=== PATIENT | male | born 1995 | race Caucasian/White ===

== ENCOUNTER 2019-10-20 16:32 | Emergency (ER) | payer BC ==
--- NOTE | 2019-10-20 17:01 | ED ---
Abdominal Pain/Male - HPI Summary HPI Summary: Patient complains of epigastric pain radiating to right side after eating certain meals times years. Patient states severe pain last night. Patient was evaluated at [facility] last night, had labs done but refused CAT scan. Patient presents today, stating that they did not treat him well. No active abdominal pain at this time. States pain is chronic, usually resolves after a couple hours. Denies fever, cough, sore throat, CP, and/V/D, change in urine, change in BM, penile or testicular symptoms. Medical history is H. pylori, anxiety, autism, hiatal hernia. - History of Current Complaint Chief Complaint: EDAbdPain Stated Complaint: STOMACH/BACK PAIN PER PT Time Seen by Provider: 10/20/19 16:58 Hx Obtained From: Patient, Family/It Systems Administrator Onset/Duration: Sudden Onset, Lasting Hours Timing: Constant Severity Initially: Severe Severity Currently: None Pain Intensity: 0 Pain Scale Used: 0-10 Numeric Location: Discrete At: RUQ, Epigastric Radiates: No Character: Burning Aggravating Factor(s): Food Alleviating Factor(s): Nothing Associated Signs And Symptoms: Positive: Decreased Appetite - Allergies/Home Medications Allergies/Adverse Reactions: Allergies Allergy/AdvReac Type Severity Reaction Status Date / Time azithromycin [From Zithromax] Allergy Agitation Verified 10/20/19 16:55 metronidazole [From Flagyl] Allergy See Comment Verified 10/20/19 18:01 tetracycline Allergy See Comment Verified 10/20/19 18:01 Home Medications: Home Medications NK [No Home Medications Reported] 10/20/19 [History Confirmed 10/20/19] PMH/Surg Hx/FS Hx/Imm Hx Endocrine/Hematology History: Denies: Hx Anticoagulant Therapy Cardiovascular History: Denies: Hx Pacemaker/ICD History: Denies: Hx Dialysis Sensory History: Denies: Hx Eye Prosthesis Opthamlomology History: Denies: Hx Legally Blind EENT History: Denies: Hx Deafness Infectious Disease History: No Infectious Disease History: Denies: Traveled Outside the [place] in Last 30 Days - Family History Known Family History: Positive: Non-Contributory - Social History Alcohol Use: Occasionally Hx Substance Use: No Hx Tobacco Use: No Review of Systems Constitutional: Negative Eyes: Negative ENT: Negative Cardiovascular: Negative Respiratory: Negative Positive: Abdominal Pain Genitourinary: Negative Musculoskeletal: Negative Skin: Negative Neurological: Negative Psychological: Normal All Other Systems Reviewed And Are Negative: Yes Physical Exam Triage Information Reviewed: Yes Vital Signs On Initial Exam: Initial Vitals Temp Pulse Resp BP Pulse Ox 97.9 F 74 16 138/85 96 10/20/19 16:48 10/20/19 16:48 10/20/19 16:48 10/20/19 16:48 10/20/19 16:48 Vital Signs Reviewed: Yes Appearance: Positive: Well-Appearing Skin: Positive: Warm Head/Face: Positive: Normal Head/Face Inspection Eyes: Positive: Normal Neck: Positive: Supple Respiratory/Lung Sounds: Positive: Clear to Auscultation Cardiovascular: Positive: Normal Abdomen Description: Positive: Nontender Musculoskeletal: Positive: Normal Neurological: Positive: Normal Psychiatric: Positive: Normal AVPU Assessment: Alert - Jovon Coma Scale Best Eye Response: 4 - Spontaneous Best Motor Response: 6 - Obeys Commands Best Verbal Response: 5 - Oriented Coma Scale Total: 15 Procedures - Sedation Patient Received Moderate/Deep Sedation with Procedure: No Diagnostics - Vital Signs Vital Signs Temp Pulse Resp BP Pulse Ox 10/20/19 16:48 97.9 F 74 16 138/85 96 - Laboratory Lab Statement: Any lab studies that have been ordered have been reviewed, and results considered in the medical decision making process. Abdominal Pain Male Course/Dx - Course Course Of Treatment: Patient complains of epigastric pain radiating to right side after eating certain meals times years. Patient states severe pain last night. Patient was evaluated at [facility] last night, had labs done but refused CAT scan. Patient presents today, stating that they did not treat him well. No active abdominal pain at this time. States pain is chronic, usually resolves after a couple hours. Denies fever, cough, sore throat, CP, and/V/D, change in urine, change in BM, penile or testicular symptoms. Medical history is H. pylori, anxiety, autism, hiatal hernia. Vital signs within normal limits. Pt refused labs due to anxiety about needles. Patient had no pain or symptoms when presenting to the ED. "Just wanted to know". Ultrasound gallbladder negative. Patient states he will get labs from his primary care doctor as he is comfortable there. - Diagnoses Provider Diagnoses: Gastritis Discharge ED - Sign-Out/Discharge Documenting (check all that apply): Patient Departure - Discharge Plan Condition: Stable Disposition: HOME Patient Education Materials: Gastritis (ED) Referrals: Jonny GARNETT,Uche Landa [Primary Care Provider] - Additional Instructions: Use [id number] Maalox for stomach pain flareups after eating spicy foods. Continue taking daily omeprazole. Follow-up with your primary care doctor for blood work and GI evaluation. Return to the ED for any new or worsening symptoms. - Billing Disposition and Condition Condition: STABLE Disposition: Home - Attestation Statements Provider Attestation: I was available for consultation for this patient. I did not evaluate the patient, or participate in any medical decision making or disposition decisions unless I am specifically named in the chart as having consulted on the patient. If I have consulted on the patient, please see my own ED note on the patient encounter. Elba Woodson MD
[2019-10-20 19:15] VITALS: BP 139/91
== END 2019-10-20 19:04 | disposition home or self-care (01) ==
LOC: ED 16:32
DX: K29.70 Gastritis, unspecified, without bleeding (principal); F41.9 Anxiety disorder, unspecified; F84.0 Autistic disorder; Z88.1 Allergy status to other antibiotic agents
CPT/HCPCS: 76705; 99282